=== PATIENT | female | born 1990 | race Caucasian/White ===

== ENCOUNTER 2023-10-23 03:24 | Outpatient (CLI) | payer BC, SELFPAY ==
[2023-10-23 13:05] LABS: TSH 0.59 uIU/mL (0.36-3.74)
== END 2023-10-23 03:25 | disposition home or self-care (01) ==
PROVIDERS: PCP Nurse Practitioner Family; Visit Provider Obstetrics & Gynecology
DX: E03.9 Hypothyroidism, unspecified (principal)
CPT/HCPCS: 36415; 84443

== ENCOUNTER 2023-11-20 11:39 | Outpatient (REF) | payer BC, SELFPAY ==
[2023-11-20 13:16] LABS: D-Dimer 357 ng/mlFEU (<500)
[2023-11-20 15:36] LABS: COVID-19 PCR Negative (Negative); Influenza A PCR Negative (Negative); Influenza B PCR Negative (Negative); RSV PCR Negative (Negative)
[2023-11-20 15:37] LABS: Source Nasopharynx
== END 2023-11-20 11:40 | disposition home or self-care (01) ==
LOC: LBN 11:39
PROVIDERS: PCP Nurse Practitioner Family; Visit Provider Physician Assistant
DX: R06.02 Shortness of breath (principal); R68.89 Other general symptoms and signs
CPT/HCPCS: 36415; 87637; 85379

== ENCOUNTER → 2023-11-20 15:41 | Outpatient (CLI) | payer BC, SELFPAY ==
--- NOTE | 2023-11-20 11:45 | DI.RAD_ITS ---
Exam(s) XR CHEST 2V PA LATERAL EXAM: XR CHEST 2V PA LATERAL CLINICAL HISTORY: R05.9 cough,unspecfied, Left lobe rhonci TECHNIQUE: 2D digital imaging was performed. COMPARISON: No exams were available for comparison FINDINGS: HEART: Normal size. Aorta: Not dilated. PULMONARY VASCULATURE: Normal. LUNGS: Streaky infiltrate seen at left heart border. Right lung clear. PLEURAL SPACE: No pleural effusion or pneumothorax. BONE:Unremarkable for age. Soft tissues: Unremarkable. IMPRESSION: Infiltrate noted at left heart border. DATA REPOSITORY: RADIATION DOSE DELIVERED:
== END ==
PROVIDERS: PCP Nurse Practitioner Family; Visit Provider Physician Assistant
DX: R05.9 Cough, unspecified (principal); R91.1 Solitary pulmonary nodule
CPT/HCPCS: 71046

== ENCOUNTER 2025-02-20 01:09 | Outpatient (CLI) | payer BC, SELFPAY ==
[2025-02-20 12:43] LABS: HCT 43.9 % (36.0-46.0); HGB 14.3 g/dL (11.2-15.7); MCH 28.4 pg (27.0-33.0); MCHC 32.6 % (32.0-36.0); MCV 87 fL (80-95); MPV 10.5 fL (8.0-11.0); Platelet Count 255 10^3/uL (130-400); RBC 5.04 10^6/uL (3.93-5.22); RDW 13.1 % (11.7-14.6); RDW-SD 41.8 fL; WBC 6.29 10^3/uL (4.4-10.8)
[2025-02-20 13:04] LABS: ALT 28 U/L (14-59); AST 11 U/L (15-37); Alkaline Phosphatase 60 U/L (46-116); Anion Gap 10.9 mmol/L (3-11); BUN 10 mg/dL (7-18); Bilirubin, Total 0.4 mg/dL (0.2-1.0); CO2 26.1 mmol/L (21.0-32.0); Calculated LDL 84 mg/dL (<100); Chloride 107 mmol/L (98-107); Cholesterol 160 mg/dL (<200); Estimated GFR 76.29 (mL/min/1.73m2); Glucose 92 mg/dL (74-106); HDL Cholesterol 45 mg/dL (>or=50); Potassium 4.3 mmol/L (3.5-5.1); Sodium 144 mmol/L (136-145); TSH (W/Ref FT4) 0.46 uIU/mL (0.36-3.74); Total Protein 7.5 g/dL (6.4-8.2); Triglyceride 157 mg/dL (<150)
[2025-02-20 13:04] LABS: Hemoglobin A1C 5.2 % (<5.7)
== END 2025-02-20 01:10 | disposition home or self-care (01) ==
LOC: LOS 01:10
PROVIDERS: PCP Nurse Practitioner Family; Visit Provider Nurse Practitioner Family
DX: Z00.00 Encounter for general adult medical examination without abnormal findings (principal); F41.9 Anxiety disorder, unspecified; E03.9 Hypothyroidism, unspecified; E66.9 Obesity, unspecified
CPT/HCPCS: 36415; 80053; 80061; 85027; 83036; 84443